=== PATIENT | female | born 1975 | race African-American/Black ===

== ENCOUNTER 2018-10-07 18:30 | Emergency (ER) | payer MEDICAID ==
[~2018-10-07] VITALS: Ht 175.3 cm; Wt 113.0 kg
[2018-10-07] MEDS ORDERED: SODIUM CHLORIDE 0.9% 1,000 ML IV ONE (19:34)
[2018-10-07 19:52] LABS: BASOPHILS % 0.9 % (0.0-2.0); EOSINOPHILS % 0.8 % (0.0-5.0); HEMATOCRIT. 40.7 % (36.0-48.0); HEMOGLOBIN. 13.2 g/dL (12.0-16.0); MEAN CORPUSCULAR HEMOGLOBIN 25.9 pg (28.0-32.0); MEAN CORPUSCULAR VOLUME 79.7 fL (81.0-99.0); MONOCYTES % 6.5 % (2.0-8.0); NEUTROPHILS % 75.8 % (40.0-76.0); PLATELET 231 x1000/uL (130-400); RED BLOOD CELL COUNT 5.11 mill/uL (4.2-5.4); RED CELL DISTRIBUTION WIDTH 16.2 % (11.6-14.6)
[2018-10-07 19:58] LABS: CHLORIDE 110 mEq/L (98-107); PROTHROMBIN TIME 10.2 sec (9.1-11.1)
[2018-10-07] MEDS ORDERED: MORPHINE SULFATE 4 MG/ML CPJ (NOT FOR IM USE) IV ONE (20:00)
[2018-10-07] MEDS ORDERED: DIPHENHYDRAMINE 25MG CAPSULE PO ONE (20:45)
[2018-10-07 21:36] LABS: CLARITY URINE CLOUDY (CLEAR); COLOR URINE YELLOW (YELLOW); KETONES URINE NEGATIVE (NEGATIVE); LEUKOCYTE ESTERASE URINE 3+ (NEGATIVE); NITRITE URINE NEGATIVE (NEGATIVE); OCCULT BLOOD URINE NEGATIVE (NEGATIVE); PH URINE 5.5 (4.5-8.0); PROTEIN URINE NEGATIVE (NEGATIVE); SPECIFIC GRAVITY URINE 1.012 (1.005-1.030); UROBILINOGEN URINE 0.2 E.U./dL (0.2-1.0)
[2018-10-07] MEDS ORDERED: CEFTRIAXONE 1 G PREMIX 50 ML IV ONE (23:00)
[2018-10-08] MEDS ORDERED: KETOROLAC 30MG/ML VIAL IV ONE
[2018-10-08 01:23] VITALS: BP 128/73
== END 2018-10-08 01:24 | disposition home or self-care (01) ==
LOC: ER 18:30
DX: N39.0 Urinary tract infection, site not specified (principal)
CPT/HCPCS: 36415; 74176; 80053; 81003; 81025; 83690; 85025; 85610; 96365; 96375; 99284; J0696; J1885; J2270; J7030; Z7610

== ENCOUNTER 2019-01-29 20:03 | Emergency (ER) | payer MEDICAID ==
[~2019-01-29] VITALS: Ht 205.7 cm; Wt 145.0 kg
[2019-01-29 20:25] VITALS: BP 164/97
== END 2019-01-30 01:38 | disposition left against medical advice (07) ==
LOC: ER 20:03
DX: Z53.21 Procedure and treatment not carried out due to patient leaving prior to being seen by health care provider (principal)

== ENCOUNTER 2020-01-22 08:32 | Inpatient (IN) | payer MEDICAID ==
[~2020-01-22] VITALS: Ht 175.3 cm; Wt 125.2 kg
[2020-01-22] MEDS ORDERED: NITROGLYCERIN 0.4MG TABLET SL SL PRN ×2 (09:15→12:30)
[2020-01-22] MEDS ORDERED: ASPIRIN 81MG TABLET PO ONE (09:15)
[2020-01-22 09:36] LABS: CHLORIDE 112 mEq/L (98-107)
[2020-01-22 09:37] LABS: EOSINOPHILS % 1.4 % (0.0-5.0); HEMATOCRIT. 36.9 % (36.0-48.0); HEMOGLOBIN. 12.3 g/dL (12.0-16.0); LYMPHOCYTES % 27.7 % (20.0-50.0); MEAN CORPUSCULAR HEMOGLOBIN 26.4 pg (28.0-32.0); MEAN CORPUSCULAR VOLUME 79.7 fL (81.0-99.0); MONOCYTES % 9.2 % (2.0-8.0); NEUTROPHILS % 60.7 % (40.0-76.0); PLATELET 194 x1000/uL (130-400); RED BLOOD CELL COUNT 4.64 mill/uL (4.2-5.4); RED CELL DISTRIBUTION WIDTH 17.4 % (11.6-14.6)
[2020-01-22 10:15] LABS: HCG SCREEN NEGATIVE
[2020-01-22] MEDS ORDERED: SODIUM CHLORIDE 0.9% 1,000 ML IV ONE (10:35)
[2020-01-22] MEDS ORDERED: KETOROLAC 15MG/ML VIAL IV ONE (10:45)
[2020-01-22] MEDS ORDERED: MAGNESIUM/ALUMINUM HYDROXIDE/SIMETHICONE 30ML UDC PO PRN (12:30)
[2020-01-22] MEDS ORDERED: DOCUSATE SODIUM 100MG CAPSULE PO PRN (12:30)
[2020-01-22] MEDS ORDERED: ENOXAPARIN 40MG/0.4ML SYR SUBCUT SCH (12:30)
[2020-01-22] MEDS ORDERED: NA PHOS,M-B/NA PHOS,DI-BA ENEMA 118ML PR PRN (12:30)
[2020-01-22] MEDS ORDERED: IPRATROPIUM/ALBUTEROL 0.5-3(2.5)MG/3ML NEB ORI PRN (12:30)
[2020-01-22] MEDS ORDERED: CLONIDINE 0.1MG TABLET PO PRN (12:30)
[2020-01-22] MEDS ORDERED: ACETAMINOPHEN 325MG TABLET PO PRN ×2 (12:30)
[2020-01-22] MEDS ORDERED: ZOLPIDEM TARTRATE 5MG TABLET PO PRN (12:30)
[2020-01-22] MEDS ORDERED: ONDANSETRON HCL 4MG/2ML INJ IV PRN (12:30)
[2020-01-22] MEDS ORDERED: LORAZEPAM 0.5MG TABLET PO PRN (12:30)
[2020-01-22] MEDS ORDERED: GUAIFENESIN 200MG/10ML SUGAR FREE UDC PO PRN (12:30)
[2020-01-22] MEDS ORDERED: KETOROLAC 15MG/ML VIAL IV PRN (12:30)
[2020-01-22 12:45] VITALS: BP 102/69
[2020-01-22] MEDS: ENOXAPARIN 40MG/0.4ML SYR SUBCUT SCH ×2 (14:00→21:50)
[2020-01-22] MEDS ORDERED: HYDR200T80 MT (14:53)
[2020-01-22] MEDS ORDERED: SULF500T8 MT (14:53)
[2020-01-22 14:55] LABS: *AMPHETAMINES SCREEN URINE NEGATIVE (NEGATIVE); *BARBITURATES SCREEN URINE NEGATIVE (NEGATIVE); *BENZODIAZEPINES SCREEN URINE NEGATIVE (NEGATIVE); OPIATES URINE SCREEN NEGATIVE (NEGATIVE); PHENCYCLIDINE URINE SCREEN NEGATIVE (NEGATIVE)
[2020-01-22 14:56] LABS: *COCAINE SCREEN URINE NEGATIVE (NEGATIVE); METHADONE URINE SCREEN NEGATIVE (NEGATIVE)
[2020-01-22 15:14] LABS: CANNABINOID URINE SCREEN PRESUMTIVE POSITIVE (NEGATIVE)
[2020-01-22 16:00] VITALS: BP 122/61
[2020-01-22] MEDS ORDERED: DIPHENHYDRAMINE 25MG CAPSULE PO PRN (17:45)
[2020-01-22 20:00] VITALS: BP 127/88
[2020-01-22] MEDS ORDERED: FAMOTIDINE 20MG TABLET PO SCH (21:00)
[2020-01-22 21:10] LABS: CREATINE KINASE 164 IU/L (26-192); CREATINE KINASE MB FRACTION < 1.0 ng/mL (0.5-3.6)
[2020-01-23] VITALS: BP 131/86
[2020-01-23 00:24] LABS: CREATINE KINASE 157 IU/L (26-192)
[2020-01-23 00:25] LABS: CREATINE KINASE MB FRACTION < 1.0 ng/mL (0.5-3.6)
[2020-01-23 04:00] VITALS: BP 128/50
[2020-01-23 08:00] VITALS: BP 101/75
[2020-01-23] MEDS: ENOXAPARIN 40MG/0.4ML SYR SUBCUT SCH ×2 (09:00→09:10)
[2020-01-23] MEDS ORDERED: FAMOTIDINE 40MG TABLET PO SCH (09:00)
[2020-01-23] MEDS ORDERED: ASPIRIN 81MG EC TABLET PO SCH (09:00)
[2020-01-23 12:00] VITALS: BP 147/84
[2020-01-23] MEDS ORDERED: ENOXAPARIN 30MG/0.3ML SYR SUBCUT SCH (21:00)
== END 2020-01-23 16:50 | disposition home or self-care (01) | DRG 203 ==
LOC: ER 08:32 → 8WST 10:53 → ENRESERV 11:44
PROVIDERS: ADMIT Internal Medicine; ATTEND Internal Medicine
DX: M94.0 Chondrocostal junction syndrome [Tietze] (principal); M19.90 Unspecified osteoarthritis, unspecified site; F12.10 Cannabis abuse, uncomplicated; Z98.891 History of uterine scar from previous surgery; E66.9 Obesity, unspecified; Z68.41 Body mass index [BMI] 40.0-44.9, adult; I51.7 Cardiomegaly
CPT/HCPCS: 36415; 71045; 80053; 80061; 80305; 82550; 82553; 83036; 83880; 84484; 84703; 85025; 93005; 93970; 96374; 99285; J1650; J1885; J7030; Q0163